=== PATIENT | male | born 1990 | race Caucasian/White ===

== ENCOUNTER 2019-08-21 10:57 | Outpatient (CLI) | payer OTHER ==
--- NOTE | 2019-08-22 | XRAY Report ---
Reason: COUGH Procedure Date: 08/21/2019 Accession Number: [id number] / [id number] Procedure: XR - Chest 2 View X-Ray CPT Code: 63832 Final Report FULL RESULT: EXAM: CHEST RADIOGRAPHY EXAM DATE: 08/21/2019 11:06 AM. CLINICAL HISTORY: COUGH. COMPARISON: None. TECHNIQUE: 2 views. FINDINGS: Lungs/Pleura: No focal opacities evident. No pleural effusion. No pneumothorax. Normal volumes. Mediastinum: Heart and mediastinal contours are unremarkable. Other: None. IMPRESSION: Normal 2-view chest radiography. RADIA
== END 2019-08-21 10:58 | disposition home or self-care (01) ==
LOC: DI 10:57
PROVIDERS: ATTEND Physician Assistant
DX: R05 Cough (principal)
CPT/HCPCS: 71046

== ENCOUNTER 2022-03-12 11:48 | Outpatient (CLI) | payer SELFPAY ==
--- NOTE | 2022-03-12 16:01 | XRAY Report ---
PROCEDURE: Tib/Fib RT INDICATIONS: R TIB/FIB PX AFTER FALL TECHNIQUE: 2 views of the tibia and fibula were acquired. COMPARISON: None FINDINGS: Bones: No fractures or dislocations. No suspicious bony lesions. Soft tissues: No suspicious soft tissue calcifications or masses. IMPRESSION: No fracture. No osseous lesion. If symptoms and/or clinical concern for pathology persists, further a ssessment with repeat plain film radiographs (7-10 days) or advanced imaging (CT, MR, bone scan) shou ld be considered. Reviewed by: Lili Painter MD, PhD on 03/12/2022 4:00 PM PDT Approved by: Lili Painter MD, PhD on 03/12/2022 4:00 PM PDT Station ID: [id number]
== END 2022-03-12 23:59 | disposition home or self-care (01) ==
LOC: DI.N 11:48
PROVIDERS: ATTEND Physician Assistant Medical
DX: M79.661 Pain in right lower leg (principal)

== ENCOUNTER 2022-03-12 12:45 | Emergency (ER) | payer SELFPAY ==
[2022-03-12] MEDS ORDERED: LIDOCAINE 1%-EPI 1:100000 20 ML MDV SUBQ STA (13:30)
--- NOTE | 2022-03-12 14:39 | ED Physician Documentation ---
PD HPI LOWER EXT INJURY - Stated complaint Stated Complaint: R LEG INJ-WIC REFERRED - Chief complaint Chief Complaint: Trauma Ext - History obtained from History obtained from: Patient - Additional information Additional information: Otherwise healthy 31-year-old gentleman was up on a stepstool a couple of days ago and the stool broke and he fell and injured his right leg. He has had increasing pain since then with some tingling but no numbness. Went to walk-in clinic where he had tib-fib x-rays done that were reportedly normal but sent here for evaluation for potential compartment syndrome. Pain is mild at rest but severe with weightbearing. Review of Systems Constitutional: reports: Reviewed and negative Nose: reports: Reviewed and negative Throat: reports: Reviewed and negative PD PAST MEDICAL HISTORY - Present Medications Home Medications: Ambulatory Orders Medication Instructions Recorded Confirmed HYDROcod/ACETAM 5/325 [Trappe 5/325] 1 - 2 tab PO Q6H PRN #15 tablet 03/12/22 - Allergies Allergies/Adverse Reactions: Allergies Allergy/AdvReac Type Severity Reaction Status Date / Time morphine AdvReac Emesis Verified 03/12/22 12:59 PD ED PE NORMAL - Vitals Vital signs reviewed: Yes - General General: Alert and oriented X 3, No acute distress - Back Back: No CVA TTP, No spinal TTP - Derm Derm: Normal color, Warm and dry - Extremities Extremities: Other (There is bruising and a little bit of abrasion on the anterior right shift. He is quite tender especially anterior on the leg. He has pain with passive range of motion especially pedal pulses and sensation are intact. He has pain with dorsiflexion of the foot but not severe.) - Neuro Neuro: Alert and oriented X 3, Normal speech Results - Vitals Vitals: Vital Signs - 24 hr 03/12/22 03/12/22 12:54 15:24 Temperature 37.3 C Heart Rate 78 77 Respiratory 14 15 Rate Blood Pressure 156/118 H 143/96 H O2 Saturation 98 97 Oxygen O2 Source Room air Procedures - General procedure General procedure: The right leg was prepped with ChloraPrep and infiltrated locally with lidocaine in for appropriate spots. Using a [employer] needle the anterior, lateral, superficial posterior and deep posterior compartments were checked. Pressures were 5, 7, 5, 5 respectively. The anterior and lateral compartments were the most symptomatic so those were rechecked 2 more times with similar readings. Departure - Departure Disposition: 01 Home, Self Care Clinical Impression: Contusion of leg, right Qualifiers: Encounter type: initial encounter Qualified Code(s): S80.11XA - Contusion of right lower leg, initial encounter Condition: Good Record reviewed to determine appropriate education?: Yes Instructions: ED Contusion Lower Ext Follow-Up: Orthopedic Care [Provider Group] Prescriptions: HYDROcod/ACETAM 5/325 [Trappe 5/325] 1 - 2 tab PO Q6H PRN #15 tablet PRN Reason: Pain Comments: As discussed, there is no evidence of compartment syndrome at this time. That does not mean that it is impossible to get compartment syndrome going forward and we recommend you return if pain worsens. Reasonable to follow-up with orthopedics later this week if not improving. Phone numbers on this form to c all for an appointment. [facility] [place]. I am prescribing a short course of narcotic pain medication for you. These are potentially dangerous and addictive medications that should be used carefully. These medications may constipate you. Take an nnim-xsp-onaheez stool softener (docusate) twice daily with plenty of water while taking these medications. If you go 24 hours without a bowel movement, take vrqt-bhx-mutvqjr miralax, per package instructions. Do not drink or drive while taking these medications. If you received narcotic or sedating medications while in the emergency department, do not drive for 24 hours. Store this medication in a safe, secure place and out of reach of children. It is a violation of federal law to give or sell this medication to another person or to use in a manner other than prescribed. The ED will not refill narcotic prescriptions, including prescriptions lost or stolen. To dispose of unwanted medications: 1. [facility] at [address] in [place] has a medication drop box. They accept prescription medications (in pill form) Saturday through Saturday 9:00 a.m. to 5:00 p.m. 2. [facility] [employer] [facility] accepts prescription medications (in pill form only) for disposal year round. Call for more information. 3. Contact the [facility] for the next [facility] sponsored prescription drug collection event. , [phone], or [phone]; Note that many narcotic pain relievers also contain Tylenol/acetaminophen. Please ensure that your total dose of acetaminophen from all sources does not exceed 3 g (3000 mg) per day. Forms: Activity restrictions
[2022-03-12] MEDS ORDERED: HYDROcod/ACETAM 5/325 MG TABLET PO STA (15:21)
[2022-03-12 15:25] VITALS: BP 143/96
== END 2022-03-12 15:45 | disposition home or self-care (01) ==
LOC: ED 12:45
DX: S80.11XA Contusion of right lower leg, initial encounter (principal); W17.89XA Other fall from one level to another, initial encounter
CPT/HCPCS: 20950; 99282; A9270

== ENCOUNTER 2022-12-11 08:33 | Outpatient (CLI) | payer SELFPAY ==
--- NOTE | 2022-12-11 10:58 | XRAY Report ---
PROCEDURE: Chest 2 View X-Ray INDICATIONS: WALKING PNEUMONIA TECHNIQUE: 2 views of the chest were acquired. COMPARISON: Chest x-ray 2 views, 08/21/2019. FINDINGS: Surgical changes and devices: None. Lungs and pleura: No pleural effusions or pneumothorax. Mild interstitial prominence. Lungs are othe rwise clear. Mediastinum: Mediastinal contours are normal. Heart size is normal. Bones and chest wall: No suspicious bony abnormalities. Soft tissues appear unremarkable. IMPRESSION: No acute cardiopulmonary disease. Reviewed by: Mo Turner MD on 12/11/2022 9:56 AM [facility] Approved by: Mo Turner MD on 12/11/2022 9:56 AM [facility] Station ID: [id number]
== END 2022-12-11 08:34 | disposition home or self-care (01) ==
LOC: DI 08:33
PROVIDERS: ATTEND Nurse Practitioner
DX: J18.9 Pneumonia, unspecified organism (principal)

== ENCOUNTER 2024-03-10 14:43 | Outpatient (CLI) | payer SELFPAY ==
--- NOTE | 2024-03-10 16:00 | XRAY Report ---
PROCEDURE: Chest 2V INDICATIONS: COUGH, SHORTNESS OF BREATH TECHNIQUE: 2 views of the chest were acquired. COMPARISON: Chest x-ray, 12/11/2022. FINDINGS: Surgical changes and devices: None. Lungs and pleura: No pleural effusions or pneumothorax. Lungs are clear. Mediastinum: Mediastinal contours appear normal. Heart size is normal. Bones and chest wall: No suspicious bony lesions. Overlying soft tissues appear unremarkable. IMPRESSION: No acute cardiopulmonary process. Reviewed by: Mo Turner MD on 03/10/2024 2:58 PM [facility] Approved by: Mo Turner MD on 03/10/2024 2:58 PM [facility] Station ID: [id number]
== END 2024-03-10 14:44 | disposition home or self-care (01) ==
LOC: DI 14:43
PROVIDERS: ATTEND Nurse Practitioner
DX: R06.02 Shortness of breath (principal); R05.9 Cough, unspecified